=== PATIENT | male | born 1970 | race Caucasian/White ===

== ENCOUNTER 2017-02-10 06:39 | Emergency (ER) | payer BC ==
[2017-02-10 06:49] VITALS: RESP 18; TEMP 97.6
--- NOTE | 2017-02-10 07:31 | C.PDOC ---
History Of Present Illness 47M c/o "spinning" sensation upon waking this morning. worse when eyes are open. lasted about an hour now resolved. no headache, numbness, weakness, vision or hearing changes. pmh htn and hlp on meds. Time Seen by Provider: 02/10/17 07:04 Chief Complaint (Nursing): Dizziness/Lightheaded Past Medical History Vital Signs: Last Vital Signs Temp 97.6 F 02/10/17 06:46 Pulse 88 02/10/17 08:06 Resp 18 02/10/17 08:06 BP 125/86 02/10/17 08:06 Pulse Ox 96 02/10/17 08:06 - Medical History PMH: HTN, Hypercholesterolemia Family History: Denies: Stroke - Social History Hx Alcohol Use: Yes Hx Substance Use: No - Immunization History Hx Tetanus Toxoid Vaccination: No Hx Influenza Vaccination: No Hx Pneumococcal Vaccination: No Review Of Systems Constitutional: Negative for: Fever, Chills Cardiovascular: Negative for: Chest Pain Respiratory: Negative for: Shortness of Breath Gastrointestinal: Positive for: Nausea, Vomiting Neurological: Negative for: Weakness, Numbness, Confusion, Altered Mental Status , Headache Physical Exam - Physical Exam Appears: Well, Non-toxic, No Acute Distress Skin: Warm, Dry Head: Atraumatic Eye(s): bilateral: PERRL, EOMI Cardiovascular: Rhythm Regular Respiratory: No Accessory Muscle Use Neurological/Psych: Oriented x3, Normal Cranial Nerves, No Cerebellar Signs, Normal Motor, Normal Sensation, Other (no focal deficits. no skew deviation. + HIT to the right.) Gait: Steady ED Course And Treatment O2 Sat by Pulse Oximetry: 98 Medical Decision Making Medical Decision Makinam the pt feels much better now. disc w pt and his plan for rx, f/u, and rtr Disposition - Disposition Referrals: Non [facility] Provider, [Primary Care Provider] - Disposition: HOME/ ROUTINE Disposition Time: 07:43 Condition: STABLE Additional Instructions: Please follow up with your doctor. Return to the ER for any worsening symptoms or for any other concerns. Prescriptions: Meclizine [Meclizine*] 25 mg PO Q8H PRN #30 tab PRN Reason: vertigo Ondansetron ODT [Zofran ODT] 4 mg PO Q4H PRN #10 odt PRN Reason: Nausea/Vomiting Instructions: Vertigo (ED) Forms: General Discharge Instructions, [facility] (Bengali), Work Excuse - Clinical Impression Clinical Impression: Vertigo
[2017-02-10 08:07] VITALS: BP 125/86; PULSE 88
[2017-02-10 10:00] VITALS: O2SAT 98
== END 2017-02-10 10:09 | disposition home or self-care (01) ==
LOC: C.ER 06:39 → SUPCPDRO 06:39 → C.ER 10:09
DX: R42 Dizziness and giddiness (principal)

== ENCOUNTER 2018-06-13 17:33 | Emergency (ER) | payer BC ==
[2018-06-13 17:40] VITALS: BP 150/83; PULSE 80; RESP 18; TEMP 98.5; O2SAT 99
--- NOTE | 2018-06-13 19:42 | C.PDOC ---
History Of Present Illness 48 year old male presents to the ED for evaluation of left ankle pain after he tripped and twisted the ankle while walking today. Patient denies head injury, LOC, extremity numbness/weakness. Time Seen by Provider: 06/13/18 18:13 Chief Complaint (Nursing): Lower Extremity Problem/Injury History Per: Patient History/Exam Limitations: no limitations Onset/Duration Of Symptoms: Hrs Current Symptoms Are (Timing): Still Present Additional History Per: Patient - Ankle/Foot Description Of Injury: Twisted (left) Past Medical History Reviewed: Historical Data, Nursing Documentation, Vital Signs Vital Signs: Last Vital Signs Temp 98.5 F 06/13/18 17:38 Pulse 80 06/13/18 17:38 Resp 18 06/13/18 17:38 BP 150/83 06/13/18 17:38 Pulse Ox 99 06/13/18 17:38 - Medical History PMH: HTN, Hypercholesterolemia Surgical History: No Surg Hx Family History: States: Unknown Family Hx Denies: Stroke - Social History Hx Alcohol Use: Yes Hx Substance Use: No - Immunization History Hx Tetanus Toxoid Vaccination: No Hx Influenza Vaccination: No Hx Pneumococcal Vaccination: No Review Of Systems Musculoskeletal: Positive for: Other (left ankle pain ) Neurological: Negative for: Weakness, Numbness, Other (head injury, LOC ) Physical Exam - Physical Exam Appears: Non-toxic, No Acute Distress Skin: Normal Color, Warm, Dry, No Ecchymosis (left ankle ) Extremity: Tenderness (to anterior and lateral malleolus of left ankle ), Capillary Refill (less than 2 seconds ), No Deformity, Swelling (minimal, to left ankle ) Pulses: Left Dorsalis Pedis: Normal, Right Dorsalis Pedis: Normal Neurological/Psych: Normal Speech, Normal Cognition, Normal Sensation ED Course And Treatment O2 Sat by Pulse Oximetry: 99 (on RA ) Pulse Ox Interpretation: Normal Progress Note: Left ankle XR ordered and reviewed. Results are unremarkable. Air cast applied by CP and was checked by me. Patient given crutches. On reassessment, patient is resting comfortably, showing no signs of distress and is stable for discharge. Patient advised to follow up with his PMD and o rthopedist within 1-2 days for further evaluation. Disposition - Disposition Referrals: Ferny Arango III, MD [Staff Provider] - Disposition: HOME/ ROUTINE Disposition Time: 19:41 Condition: STABLE Additional Instructions: Follow up with PMD and Orthopedist within 1-2 days. Return to ED if feel worse. Prescriptions: Ibuprofen [Motrin Tab] 600 mg PO Q8 #30 tab Instructions: Ankle Sprain (DC) Forms: [facility] [employer] [facility] (Serbian), Work Excuse - Clinical Impression Clinical Impression: Ankle sprain - PA / [employer]IOR [employer] / Resident Statement MD/DO has reviewed & agrees with the documentation as recorded. - Scribe Statement The provider has reviewed the documentation as recorded by the Scribe (Marie Stahl) All medical record entries made by the Scribe were at my direction and personally dictated by me. I have reviewed the chart and agree that the record accurately reflects my personal performance of the history, physical exam, medical decision making, and the department course for this patient. I have also personally directed, reviewed, and agree with the discharge instructions and disposition.
--- NOTE | 2018-06-14 09:37 | RAD ---
Date of service: 06/13/2018 PROCEDURE: Left Ankle Radiographs. HISTORY: twisted COMPARISON: None available. TECHNIQUE: 3 views obtained. FINDINGS: BONES: Acute displaced fracture nor dislocation.. Talar dome intact small plantar and posterior calcaneal enthesophyte are present former slightly larger than latter JOINTS: Ankle mortise maintained. Minor osteophyte formation seen with spurring of the inferior tip of the medial malleolus and probably some spurring of the anterior aspect of the distal tibia SOFT TISSUES: Normal. OTHER FINDINGS: None. IMPRESSION: No acute fractures. Minor degenerative osteoarthritis.
== END 2018-06-13 19:51 | disposition home or self-care (01) ==
LOC: C.ER 17:33
DX: S93.402A Sprain of unspecified ligament of left ankle, initial encounter (principal); X50.9XXA Other and unspecified overexertion or strenuous movements or postures, initial encounter